=== PATIENT | female | born 1965 | race Asian ===

== ENCOUNTER 2016-11-14 18:38 | Emergency (ER) | payer OTHER ==
[~2016-11-14] VITALS: Ht 152.4 cm; Wt 54.0 kg
[2016-11-14 18:40] VITALS: BP_SYST 204
[2016-11-14] MEDS ORDERED: DIPH-TET-PERTUS Vaccine 0.5 ML VIAL (ADACEL) IM ONE (18:45)
[2016-11-14] MEDS ORDERED: BACITRACIN 1 GM OINT TP ONE ×2 (18:45→19:21)
[2016-11-14] MEDS ORDERED: MORPHINE 2 MG/ML INJ. SYRINGE IVP ONE (19:00)
[2016-11-14] MEDS ORDERED: SILVER SULFADIAZINE 1%, 25 GM TOPICAL CREAM (SSD) TP ONE (19:15)
[2016-11-14 20:35] VITALS: BP_SYST 154
== END 2016-11-14 20:35 | disposition home or self-care (01) ==
LOC: SED 18:38
DX: T22.20XA Burn of second degree of shoulder and upper limb, except wrist and hand, unspecified site, initial encounter (principal); T22.111A Burn of first degree of right forearm, initial encounter; T22.112A Burn of first degree of left forearm, initial encounter; T24.112A Burn of first degree of left thigh, initial encounter; T24.111A Burn of first degree of right thigh, initial encounter; X08.8XXA Exposure to other specified smoke, fire and flames, initial encounter; W40.1XXA Explosion of explosive gases, initial encounter; Y93.89 Activity, other specified; Y99.8 Other external cause status; Y92.89 Other specified places as the place of occurrence of the external cause
CPT/HCPCS: 16020; 90471; 90715; 96374; 99284; J2270; J7030

== ENCOUNTER 2016-11-15 09:29 | Emergency (ER) | payer OTHER ==
[~2016-11-15] VITALS: Ht 152.4 cm; Wt 54.0 kg
[2016-11-15 09:38] VITALS: BP_SYST 165
--- NOTE | 2016-11-15 09:40 | NUR ---
Patient to ER bed 6 to gown for evaluation. Side rails up. Report given to Dustin LUKE.
--- NOTE | 2016-11-15 10:13 | NUR ---
MD Cline at bedside.
[2016-11-15] MEDS ORDERED: NS 1000 ML BAG IV ONE (10:15)
[2016-11-15] MEDS ORDERED: MORPHINE 4 MG/ML INJ. SYRINGE IVP ONE (10:15)
[2016-11-15] MEDS ORDERED: ONDANSETRON HCL 4 MG/2 ML VIAL IVP ONE (10:15)
[2016-11-15] MEDS ORDERED: AMPICILLIN SODIUM/SULBACTAM NA 3 GM in NS 100 ML IV ONE (10:15)
--- NOTE | 2016-11-15 10:32 | NUR ---
Introduced self to patient, MD at bedside explaining AMA. Patient and family member deciding to leave against medical advice.
--- NOTE | 2016-11-15 10:34 | NUR ---
Orders given to cancerl orders per mD Cline.
[2016-11-15] MEDS ORDERED: ceFAZolin SODIUM 1 GM VIAL IM ONE (10:45)
[2016-11-15 10:58] LABS: BASOPHILS # (AUTO) 0.3 K/uL (0.0-0.2); BASOPHILS % (AUTO) 2.8 % (0.0-2.0); EOSINOPHILS # (AUTO) 0.2 K/uL (0.0-0.4); EOSINOPHILS % (AUTO) 1.9 % (0.0-4.0); HEMATOCRIT 36.4 % (36-48); HEMOGLOBIN 12.2 g/dL (12.0-16.0); LYMPHOCYTES # (AUTO) 1.1 K/uL (1.0-5.5); LYMPHOCYTES % (AUTO) 11.9 % (20.5-51.5); MEAN CORPUSCULAR HEMOGLOBIN 32 pg (27-31); MEAN CORPUSCULAR HGB CONC 34 % (32-36); MEAN CORPUSCULAR VOLUME 96 fL (79.0-98.0); MONOCYTES # (AUTO) 0.7 K/uL (0.0-1.0); MONOCYTES % (AUTO) 7.5 % (1.7-9.3); NEUTROPHILS # (AUTO) 6.6 K/uL (1.8-7.7); NEUTROPHILS % (AUTO) 75.9 % (40.0-70.0); PLATELET COUNT (AUTO) 392 K/uL (130-430); RED BLOOD CELL COUNT(AUTO) 3.79 MIL/uL (4.2-6.2); RED CELL DISTRIBUTION WIDTH 13.8 % (9.0-15.0); WHITE BLOOD COUNT (AUTO) 8.9 K/uL (4.8-10.8)
[2016-11-15 11:06] LABS: CREATININE 0.78 mg/dL (0.55-1.30); POTASSIUM 3.7 mmol/L (3.5-5.1)
[2016-11-15 11:10] LABS: ALBUMIN 3.7 g/dL (3.4-4.8); TOTAL PROTEIN, SERUM 7.1 g/dL (6.4-8.3)
[2016-11-15 11:11] LABS: INR 0.9 (0.8-1.2); PROTHROMBIN TIME 10.3 SECS (9.5-12.5)
[2016-11-15] MEDS ORDERED: BACITRACIN 1 GM OINT TP ONE ×2 (11:15)
--- NOTE | 2016-11-15 11:36 | NUR ---
Patient does not wish to proceed with medical care recommended by . Patient given information related to possible complications, up to and including , which could occur as a result of leaving hospital at this time. Patient verbalizes understanding of risks involved leaving against medical advice. Patient has signed AMA form.
[2016-11-15 11:37] VITALS: BP_SYST 122
== END 2016-11-15 11:37 | disposition left against medical advice (07) ==
LOC: SED 09:29
DX: T20.26XD Burn of second degree of forehead and cheek, subsequent encounter (principal); T22.211D Burn of second degree of right forearm, subsequent encounter; T22.212D Burn of second degree of left forearm, subsequent encounter; X08.8XXD Exposure to other specified smoke, fire and flames, subsequent encounter
CPT/HCPCS: 16020; 36415; 80053; 83605; 84703; 85025; 85610; 85730; 87040; 96372; 99284; J0690